=== PATIENT | male | born 1955 | race Caucasian/White ===

== ENCOUNTER → 2018-06-23 09:37 | Outpatient (CLI) | payer OTHER, SELFPAY ==
--- NOTE | 2018-06-23 09:35 | DI.REPORT_ITS ---
SYMPTOM/DIAGNOSIS: ACUTE PAIN RIGHT SHOULDER M25.511. RIGHT SHOULDER: Five views. There are mild hypertrophic changes seen at the acromioclavicular joint. The glenohumeral joint is well maintained. The bones are intact and normally mineralized. The soft tissues are unremarkable. IMPRESSION: 1. No acute abnormality. 2. Mild degenerative changes of the right AC joint. 3. If there is concern for internal derangement an MRI should be considered for further evaluation.
== END ==
PROVIDERS: PCP Nurse Practitioner; Visit Provider Nurse Practitioner Adult Health
DX: M25.511 Pain in right shoulder (principal); M19.011 Primary osteoarthritis, right shoulder
CPT/HCPCS: 73030

== ENCOUNTER 2018-09-24 09:06 | Outpatient (CLI) | payer OTHER, SELFPAY ==
[2018-09-24 09:37] LABS: Abs Immature Grans 0.01 k/cumm (0.0-0.09); Absolute Basophil Count 0.01 k/cumm (0.0-0.2); Absolute Eosinophil Count 0.16 k/cumm (0.0-0.7); Absolute Lymphocyte Count 1.27 k/cumm (1.2-3.4); Absolute Monocyte Count 0.51 k/cumm (0.11-0.7); Absolute Neutrophil Count 3.97 k/cumm (1.2-6.7); Basophils % 0.2; Eosinophils % 2.7; HCT 45.7 % (40.0-50.0); HGB 15.4 g/dL (13.5-17.5); Immature Grans % 0.2; Lymphocytes % 21.4; Mean Corp. HGB Concentration 33.7 g/dL (32.0-36.0); Mean Corpuscular Hemoglobin 29.7 pg (27.0-33.0); Mean Corpuscular Volume 88.2 fL (80-95); Mean Platelet Volume 12.2 fL (8.0-11.0); Monocytes % 8.6; Neutrophils % 66.9; Platelet Count 158 x1000/uL (130-400); RBC 5.18 m/cumm (4.50-6.00); RBC Distribution Width 13.7 % (11.8-14.1); White Blood Cell Count 5.93 k/cumm (4.4-10.8)
[2018-09-24 10:34] LABS: ALT 10 U/L (12-78); AST 25 U/L (15-37); Albumin 4.4 g/dL (3.4-5.0); Alkaline Phosphatase 83 U/L (46-116); Anion Gap 6.5 mmol/L (3-11); BUN 19 mg/dL (7-18); Bilirubin, Total 1.4 mg/dL (0.2-1.0); CO2 29.5 mmol/L (21.0-32.0); CREATININE 1.02 mg/dL (0.70-1.30); Calcium 9.5 mg/dL (8.5-10.1); Chloride 102 mmol/L (98-107); Cholesterol 246 mg/dL (50-200); Glucose 96 mg/dL (70-100); HDL Cholesterol 53 mg/dL (40-60); LDL CHOLESTEROL 178 mg/dL (<100); Potassium 5.1 mmol/L (3.5-5.1); Sodium 138 mmol/L (136-145); Total Protein 7.3 g/dL (6.4-8.2); Triglyceride 121 mg/dL (30-150)
== END 2018-09-24 09:26 ==
PROVIDERS: PCP Nurse Practitioner; Visit Provider Nurse Practitioner
DX: E78.5 Hyperlipidemia, unspecified (principal); G20 Parkinson's disease
CPT/HCPCS: 36415; 80053; 80061; 83721; 85025

== ENCOUNTER 2018-09-25 10:03 | Outpatient (CLI) | payer OTHER, SELFPAY ==
[2018-09-25 11:33] LABS: Bilirubin, Direct 0.18 mg/dL (0.00-0.20); Bilirubin, Total 0.8 mg/dL (0.2-1.0)
[2018-09-26 10:50] LABS: Lyme Ab w Rflx to Lyme Confirm Negative
[2018-09-27 00:02] LABS: Anaplasma phagocytophilum Negative (Negative); B. miyamotoi PCR Negative (Negative); Babesia divergens/MO-1 Negative (Negative); Babesia duncani Negative (Negative); Babesia microti Negative (Negative); Ehrlichia chaffeensis Negative (Negative); Ehrlichia ewingii/canis Negative (Negative); Ehrlichia muris eauclairensis Negative (Negative)
== END 2018-09-25 10:23 ==
PROVIDERS: PCP Nurse Practitioner; Visit Provider Nurse Practitioner
DX: M25.50 Pain in unspecified joint (principal); R79.9 Abnormal finding of blood chemistry, unspecified
CPT/HCPCS: 36415; 82247; 82248; 86618; 87798

== ENCOUNTER 2019-04-01 00:22 | Outpatient (CLI) | payer OTHER, SELFPAY ==
--- NOTE | 2019-04-01 11:00 | DI.US_ITS ---
SYMPTOM/DIAGNOSIS: PREVIOUS ENLARGED CYSTS, FEELS SIMILAR PAIN AGAIN,N28.1 RENAL ULTRASOUND: The kidneys are unremarkable in size and shape except for the presence of multiple simple renal cysts on the right kidney, the largest measuring about 32 mm. in diameter. No nephrolithiasis or hydronephrosis. Urinary bladder is unremarkable in appearance with pre and post void urinary bladder volume measurements of 118 cc's and 3 cc's respectively. CONCLUSION: Multiple right renal cysts. The examination is otherwise unremarkable.
== END 2019-04-01 00:42 ==
PROVIDERS: PCP Nurse Practitioner; Visit Provider Family Medicine
DX: N28.1 Cyst of kidney, acquired (principal)
CPT/HCPCS: 76770

== ENCOUNTER 2020-01-27 03:30 | Outpatient (CLI) | payer OTHER, SELFPAY ==
[2020-01-27 10:22] LABS: Anion Gap 8.8 mmol/L (3-11); BUN 22 mg/dL (7-18); CO2 30.2 mmol/L (21.0-32.0); CREATININE 1.03 mg/dL (0.70-1.30); Calcium 8.9 mg/dL (8.5-10.1); Chloride 104 mmol/L (98-107); Glucose 93 mg/dL (74-106); Potassium 4.5 mmol/L (3.5-5.1); Sodium 143 mmol/L (136-145)
[2020-01-27 11:45] LABS: Calculated LDL 146 mg/dL (<100); Cholesterol 222 mg/dL (<200); HDL Cholesterol 56 mg/dL (40-60); Triglyceride 103 mg/dL (<150)
== END 2020-01-27 03:50 ==
PROVIDERS: PCP Nurse Practitioner; Visit Provider Family Medicine
DX: E78.5 Hyperlipidemia, unspecified (principal); N28.1 Cyst of kidney, acquired
CPT/HCPCS: 36415; 80048; 80061

== ENCOUNTER 2020-10-17 11:55 | Outpatient (CLI) | payer OTHER, SELFPAY ==
--- NOTE | 2020-10-17 10:43 | DI.RAD_ITS ---
EXAM: XR SHOULDER RT COMPLETE 2+V CLINICAL HISTORY: rt shoulder pain TECHNIQUE: COMPARISON: No exams were available for comparison FINDINGS: Three views were obtained. There is mild hypertrophic degenerative change at the acromioclavicular j oint. Mild marginal osteophyte formation of the glenoid noted. Cartilaginous joint space of glenohu meral joint appears fairly well maintained. No other significant bony or soft tissue abnormality see n. IMPRESSION: Minimal degenerative changes as described above. RADIATION DOSE DELIVERED: Total DLP Total DLP
== END 2020-10-17 12:15 ==
PROVIDERS: PCP Nurse Practitioner; Referring Provider Nurse Practitioner; Visit Provider Physician Assistant Surgical
DX: M19.011 Primary osteoarthritis, right shoulder (principal)
CPT/HCPCS: 73030

== ENCOUNTER 2020-11-03 00:27 | Outpatient (CLI) | payer OTHER, SELFPAY ==
--- NOTE | 2020-11-03 13:17 | DI.RAD_ITS ---
EXAM: RF JOINT INJECTION FLUORO GUID CLINICAL HISTORY: R SHOULDER INJ UNDER FLUORO,RT SHOULDER PAIN,M25.511 TECHNIQUE: COMPARISON: No exams were available for comparison FINDINGS: C-arm fluoroscopy was utilized by Dr. Mcwilliams during right shoulder joint injection. Hard copy show s intra-articular injection. Fluoro time undetermined. IMPRESSION: RADIATION DOSE DELIVERED: Total DLP
--- NOTE | 2020-11-03 13:43 | OPPNE_ITS ---
Date of service: 11/03/20 Time of Service: 13:21 Procedure Note Date of procedure: 11/03/20 Procedure: Right Shoulder Injection Surgeon/Proceduralist/Physician: Hossein Mcwilliams Procedure Diagnosis: Right Shoulder Pain, ?Posterior Labral Tear Procedure Indications: Juan David has had persistent pain of the RIGHT shoulder. Noninvasive measures have been tried. To serve as both diagnostic and therapeutic, an injection under fluoroscopy was recommended. I had discussed the risks of the procedure and the patient elected to proceed. Procedure Description: Juan David was greeted in the flouroscopy room. The correct side was identified and the consent was reviewed with the patient and signed. The patient was then placed in the supine position on the fluoroscopy table. The RIGHT shoulder was then prepped with Chloraprep. The anterior injection starting point was identiifed by bony landmarks and fluoroscopy. The skin and soft tissue in the tract of the injection was anesthetized with 1% Lidocaine. A spinal needle was then inserted deep into the shoulder joint at the level of the recess between the glenoid and superior humeral head. A small amount of Omnipaque solution was injected to confirm intraarticular placement. Once confirmed, the shoulder was injected with 5cc of 0.5% Bupivicaine and 80mg of Depo-Medrol. A bandaid was placed on the injection site. The patient tolerated the procedure well and noted improvement in pre- injection pain.
[2020-11-03] MEDS: Bupivacaine 0.5% Pres-Free 10 ML VIAL 6 ML IJ (13:46)
[2020-11-03] MEDS: Omnipaque 300 MG/ML 10 ML BTL IJ (13:47)
[2020-11-03] MEDS: methylPREDNISolone ACETATE 80 MG/ML VIAL IM (13:48)
== END 2020-11-03 00:47 ==
PROVIDERS: PCP Nurse Practitioner; Visit Provider Student in an Organized Health Care Education/Training Program
DX: M25.511 Pain in right shoulder (principal)
CPT/HCPCS: 20610; 77002; J1040

== ENCOUNTER 2021-03-13 01:32 | Outpatient (CLI) | payer OTHER, SELFPAY ==
--- NOTE | 2021-03-13 09:30 | DI.MRI_ITS ---
EXAM: MR UPPER JOINT RT WO CLINICAL HISTORY: Failed nonop,SLAP TEAR RT SHOULDER,RT RTC TENDONITIS,IMPINGEMENT SYNDROME TECHNIQUE: Multiplanar multisequence MRI of the shoulder was performed. COMPARISON: CR XR SHOULDER RT COMPLETE 2+V from 10/17/2020 FINDINGS: MARROW:There is no evidence of fracture, Hill-Sachs deformity, nor ominous osseous lesions. There is significant area of signal abnormality in the subarticular aspect of the lesser tuberosity measuring 1.4 x 1 point 0 by 1.8 cm consistent with degenerative subarticular cystic formation. There are no d egenerative subarticular cysts in the osseous glenoid. ROTATOR CUFF MECHANISM: AC JOINT/ACROMIUM: Are degenerative changes in the AC joint. The undersurface of the lateral clavicl e proximal to the joint is causing some impingement related to convex undersurface of the clavicle at this level the undersurface of the acromion is flat. No impingement 12. No enthesopathy evident at the coracoacromial ligament.. There is no evidence of os acromiale. Supraspinatus: There is signal abnormality in the supraspinatus tendon with insertional partial thick ness tearing on the articular side. No full-thickness tear evident. No retraction of the musculoten dinous junction. Infraspinatus: Intact. No evidence of tear nor muscle atrophy. Teres Minor: Intact. No evidence of tear nor muscle atrophy. Subscapularis/anterior cuff: Intact. No abnormal signal at the level of the multipennate insertional fibers. No significant tear nor atrophy. BICEPS TENDON/LABRUM: Exhibits normal position within the intertubercular groove. The exhibits some abnormal signal at its attachment with the anterosuperior labrum and some signal ab normality consistent with SLAP-type tearing is seen in the superior labrum more posteriorly. This te aring also involves the more superior aspect of the posterior labrum. Inferior labrum appears intact . Some increased signal is evident within the anterior labrum. There is no evidence of paralabral cyst. GLENOHUMERAL JOINT: No prominent joint effusion nor obvious loose intra-articular bodies. Mild degen erative changes evident within the hyaline cartilage.. No osteophytes. No evidence of capsular tear . The inferior glenohumeral ligament is intact. QUADRILATERAL SPACE: No evidence of mass in the region of the axillary nerve and dorsal circumflex hu meral vessels. Visualized triceps muscle at this level appears unremarkable. IMPRESSION: 1. Partial-thickness tearing of the insertional aspect of the supraspinatus. No full-thickness tear. No retraction of the musculotendinous junction. No prominent muscle atrophy. There is impingement related to degenerative changes in the AC joint and convex undersurface of the lateral 3rd of the cl avicle. 2. Although the biceps tendon not displaced from the intertubercular groove, there is signal abnormal ity at its attachment to the anterosuperior labrum as well as increased signal within the superior la ken posterior to this level and also within the superior aspect of the posterior labrum. Consistent with an element of SLAP-type tear. Mild tearing of the anterior labrum also noted. There is no leonor dence of paralabral cyst. DATA REPOSITORY:
== END 2021-03-13 01:52 ==
PROVIDERS: PCP Nurse Practitioner; Visit Provider Student in an Organized Health Care Education/Training Program
DX: M25.511 Pain in right shoulder (principal); M75.41 Impingement syndrome of right shoulder; M75.81 Other shoulder lesions, right shoulder; S43.431A Superior glenoid labrum lesion of right shoulder, initial encounter; M75.111 Incomplete rotator cuff tear or rupture of right shoulder, not specified as traumatic
CPT/HCPCS: 73221

== ENCOUNTER 2021-03-18 09:13 | Emergency (ER) | payer OTHER, SELFPAY ==
[2021-03-18] MEDS: Normal Saline Flush 10 ML SYR IVP (09:20)
[2021-03-18] MEDS: Normal Saline 1,000 ML 1000 ML IV (09:20)
[2021-03-18] MEDS: Ketorolac 30 MG/ML VIAL IVP (09:25)
--- NOTE | 2021-03-18 09:29 | ED.GENADUL_ITS ---
Discharge Plan Disposition Patient Disposition: HOME Condition: Stable Discharge Details Clinical Impression: Kidney stone, Hematuria Primary Care Provider: Shirley Herrmann ED Provider: Janeth Barnett Home Meds and New Rx's Prescriptions: Continued sildenafil [Viagra] 100 mg tablet 100 mg PO ONCE PRN (Reason: sexual activity) Qty: 10 RF: 12 carbidopa-levodopa [Sinemet] 25-100 mg tablet 1 tab PO TID RF: 0 amantadine HCl 100 mg tablet 100 mg PO BID Qty: 180 RF: 3 Multi-Betic 1 EACH tablet 1 ea PO DAILY RF: 0 STRESSTABS PO DAILY RF: 0 ibuprofen 800 mg tablet 800 mg PO TID PRN (Reason: pain) Qty: 90 RF: 1 Discharge Instructions Instructions: Oxycodone, Rapid Release (By mouth), Kidney Stones (ED), Hematuria (ED) Additional Instructions: You have a kidney stone on the right side. Please encourage water intake. Tylenol and/or Ibuprofen for discomfort. If this is insufficient, you may use the oxycodone as prescribed. One tab every six hours as needed for discomfort. Do not drive while taking this medication. Flomax once daily to promote passage of stone, this was called to your pharmacy. You may stop once stone has passed. Please strain your urine to collect stone. Please call Dr. Pina Saturday to schedule follow up appointment. If you develop fevers/chills, increased pain or other new/worsening symptoms please seek care urgently once again. Referrals: Rigo Pina MD [ [facility] STAFF PHYSICIAN] - Shirley Herrmann NP [Primary Care Provider] - Medical Decision Making Patient is a pleasant 55-year-old gentleman presented with chief complaint of right sided flank pain that radiates into the right lower quadrant as well as hematuria. He describes a sudden onset of pain approximately 45 minutes prior to arrival. He has no history of nephrolithiasis although he does report that his brother has had issues with kidney stones historically. States that pain radiates from the right flank into the right lower quadrant. States he did initially have some nausea but denies any now. No fevers. No vomiting. States that he noted hematuria shortly after the onset of his symptoms but denies any dysuria. On exam, patient appears uncomfortable. Nontoxic. Afebrile. Hypertensive blood pressure 152/87. Indicates the right flank draws a line to the right lower quadrant is area of discomfort. Denies any testicular pain. Abdomen has no peritoneal findings with some mild discomfort in the right lower quadrant. No CVA tenderness to percussion at this time. Lungs are clear. Normal cardiac exam. Primarily concern at this time for nephrolithiasis. Patient does report that he has had kidney cyst historically as well. Also considered appendicitis but find this less likely. Plan to obtain CT for renal studies. Patient will be given Toradol and morphine to help with discomfort. Reevaluated the patient. He reports feeling improved and declines any further analgesics. Discussed findings of labs with the patient. CT and UA pendin. Reviewed by radiologist: FINDINGS: Liver: Normal. No mass. Gallbladder and bile ducts: Normal. No calcified stones. No ductal dilation. Pancreas: Normal. No ductal dilation. Spleen: Normal. No splenomegaly. Adrenal glands: Normal. No mass. Kidneys and ureters: 2.4 millimeter RIGHT UVJ calculus causes moderate dilatation of the RIGHT ureter, and RIGHT collecting system. The RIGHT kidney is edematous and there is RIGHT perirenal stranding. Multiple cystic structures in both kidneys. Pararenal cysts in the left kidney. Nonobstructing left renal calculus Stomach and bowel: The stomach is not distended. Gastric pathology cannot be ruled out Appendix: Normal appendix Intraperitoneal space: Unremarkable. No free air. No significant fluid collection. Vasculature: Unremarkable. No abdominal aortic aneurysm. Lymph nodes: Small retroperitoneal nodes Urinary bladder: Unremarkable as visualized. Reproductive: Unremarkable as visualized. Bones/joints: Unremarkable. No acute fracture. Soft tissues: Unremarkable. IMPRESSION: 2.4 millimeter RIGHT UVJ calculus causes moderate dilatation of the RIGHT ureter, and RIGHT collecting system. The RIGHT kidney is edematous and there is RIGHT perirenal stranding. Labs reviewed. No leukocytosis. Stable H&H. No significant abnormalities on CMP. Urine was brown and significant for RBCs. This has reflex to culture. Do not see any clinical indicators to suggest infected stone at this time. Normal WBC. Patient did receive 1 L of fluids while here. Will give Flomax. He will continue the Flomax capacity stone. Advise follow-up with urology. He will strain his urine and bring stone in for sampling. Return precautions were discussed. We will continue with Tylenol and/or ibuprofen as needed for discomfort. Augmented with oxycodone. #4 tabs were given to the patient and safe use was discussed. He was advised not to drive will take this medication. He will take this only as prescribed. Return precautions were discussed. Advised to follow-up with urology. They will call on Saturday to schedule follow- up appointment. Urine culture is pending. All of his questions and concerns were addressed and he is in agreement with this plan. HPI General Mode of arrival: ambulatory . Date/Time Provider Initiated Documentation: 03/18/21 09:16 . Limitations to Documentation: no limitations . Information obtained by: patient, family () and RN notes reviewed . History of Present Illness 65 year old M presents to the emergency department with the chief complaint of right flank/abdoominal pain, described as severe, with intensity rated at 10. Quality is described as stabbing, and is localized to the back and abdomen. Patient reports no radiation. Patient started experiencing this minute(s) (45) and it has been constant. No relieving factors improve symptom(s), No exacerbating factors reported . Patient notes nausea/vomiting (states he initially had nausea, no vomiting, none currently); denies chest pain, fever/chills, rash, shortness of breath and weakness. Patient did receive the following treatments prior to arrival, none Related Data Home Medications Medication Instructions Recorded Confirmed Multi-Betic 1 ea PO DAILY 08/28/16 03/18/21 Stresstabs PO DAILY 08/28/16 02/22/21 sildenafil 100 mg tablet 100 mg PO ONCE PRN #10 tab 01/27/20 03/18/21 amantadine HCl 100 mg tablet 100 mg PO BID #180 tab 08/24/20 03/18/21 ibuprofen 800 mg tablet 800 mg PO TID PRN #90 tab 10/06/20 03/18/21 carbidopa 25 mg-levodopa 100 mg 1 tab PO TID tab-cap 02/22/21 03/18/21 tablet Previous Rx's Medication Instructions Recorded sildenafil 100 mg tablet 100 mg PO ONCE PRN #10 tab 01/27/20 amantadine HCl 100 mg tablet 100 mg PO BID #180 tab 08/24/20 ibuprofen 800 mg tablet 800 mg PO TID PRN #90 tab 10/06/20 Allergies Allergy/AdvReac Type Severity Reaction Status Date / Time gentamicin Allergy Intermediate eye Verified 03/18/21 09:36 irritation poison ariana extract AdvReac Intermediate Skin Rash Verified 03/18/21 09:36 [Poison Ariana Extract] tobramycin AdvReac Intermediate Eye Verified 03/18/21 09:36 irritation aspirin AdvReac Unknown BLOODY NOSE Verified 03/18/21 09:36 poison oak extract AdvReac Unknown Skin Rash Verified 03/18/21 09:36 [Poison [place] Extract] Review of Systems Constitutional Constitutional: Reports as per HPI, Denies chills, Denies fatigue, Denies fever(s) and Denies headache(s) ENT Ears, Nose, Mouth, and Throat: Denies headache(s) Cardiovascular Cardiovascular: Reports as per HPI, Denies chest pain and Denies dyspnea Respiratory Respiratory: Reports as per HPI, Denies cough and Denies dyspnea Gastrointestinal Gastrointestinal: Reports as per HPI Genitourinary Genitourinary: Reports as per HPI Musculoskeletal Musculoskeletal: Reports as per HPI Neurologic Neurologic: Denies headache(s) Endocrine Endocrine: Denies fatigue [facility] Medical History (Updated 03/18/21 @ 11:09 by JUSTIN August) Erectile dysfunction Low back pain (04/29/14) Dr Woodson Other and unspecified hyperlipidemia (11/27/11) LDL goal 160 Logan RS 8%; PCEq 7.8%; LDL baseline 148 Parkinson disease (09/19/16) Right rotator cuff tendonitis Rotator cuff impingement syndrome of left shoulder (02/29/16) Simple renal cyst (03/01/14) Surgical History Arthroscopy, Shoulder (02/14/16) left 2016 Colonoscopy - IV Sedation (10/19/14) Dr Hernandez History of ankle surgery 1998 for bone spur Status post biopsy of kidney IR procedure in 2013 for renal cyst Family History Sister Hypertension Brother No problems noted. Mother , age 60 of breast CA Hypertension Breast cancer Father , age 83 of CHF CHF (congestive heart failure) Sister Lung cancer Social History Smoking/Tobacco Use Status: Never Smoking risk assessment performed?: Yes Alcohol Intake: current Alcohol Intake frequency: a few times a week Alcohol type: beer Drug use: Occasionally Substance use type: marijuana Adopted: No Foster care: No Household members: spouse Number of Children: 2 number of grandchildren: 0 current occupation: pharmacist Sexually active: Yes Do you think of yourself as: straight/heterosexual Current gender identity: male Frequency: 3-4 times per week Special manuel needs: No Seatbelt use: always Helmet use: Yes Drive intox or ride w/intox otr driver: No Working smoke detector in home: Yes Fire extinguisher in home: Yes Carbon monox detector in home: No Exam Const General: cooperative, healthy appearing, uncomfortable, no acute distress and well developed Nutritional Appearance: average body habitus and well nourished Orientation: alert and awake HENMT Mouth: moist mucous membranes Resp Effort & Inspection: normal respiratory effort and no respiratory distress Auscultation: clear to auscultation bilaterally, no rales, no rhonchi and no wheezes Cardio Rate: regular rate Rhythm: regular rhythm Heart Sounds: S1 normal and S2 normal GI Inspection: normal to inspection, no edema and non-distended Palpation: soft, no hepatosplenomegaly, no guarding, no hernias, no pulsatile masses and tender (mild tenderness RLQ, no rebound or peritoneal findings) Percussion: normal to percussion Auscultation: normal bowel sounds Back/Spine/Pelvis Back: no CVA tenderness Skin General skin exam: no rashes or lesions noted Neuro General: patient alert and patient awake Cognition: normal cognition Speech: speech normal Gait: normal gait Psych Appearance: grossly normal and well kempt Mental Status: mental status grossly normal Speech and Movement: speech and movement normal
[2021-03-18 09:33] VITALS: BP 162/87; PULSE 59; RESP 16; TEMP 36.2; O2SAT 100
[2021-03-18 09:36] LABS: Abs Immature Grans 0.01 10^3/uL (0.0-0.06); Absolute Basophil Count 0.03 10^3/uL (0.0-0.2); Absolute Eosinophil Count 0.14 10^3/uL (0.0-0.7); Absolute Lymphocyte Count 1.75 10^3/uL (1.2-3.4); Absolute Monocyte Count 0.45 10^3/uL (0.1-0.8); Absolute Neutrophil Count 3.72 10^3/uL (1.2-6.7); Basophils % 0.5; Eosinophils % 2.3; HCT 46.6 % (40.0-50.0); HGB 15.4 g/dL (13.5-17.5); Immature Grans % 0.2; Lymphocytes % 28.7; MCH 29.2 pg (27.0-33.0); MCV 88.4 fL (80-95); MPV 12.5 fL (8.0-11.0); Monocytes % 7.4; Neutrophils % 60.9; Nucleated RBC 0 %; Platelet Count 148 10^3/uL (130-400); RBC 5.27 10^6/uL (4.36-5.78); RDW 12.5 % (11.8-14.1); RDW-SD 40.6 fL
[2021-03-18 09:45] LABS: ALT 13 U/L (16-63); AST 21 U/L (15-37); Albumin 4.1 g/dL (3.4-5.0); Alkaline Phosphatase 102 U/L (46-116); Anion Gap 10.4 mmol/L (3-11); BUN 25 mg/dL (7-18); Bilirubin, Total 0.9 mg/dL (0.2-1.0); CO2 27.6 mmol/L (21.0-32.0); CREATININE 1.2 mg/dL (0.70-1.30); Chloride 104 mmol/L (98-107); Glucose 127 mg/dL (74-106); Potassium 3.7 mmol/L (3.5-5.1); Sodium 142 mmol/L (136-145); Total Protein 7.4 g/dL (6.4-8.2)
[2021-03-18] MEDS: MORPHine 10 MG/ML VIAL 4 MG IVP (09:49)
--- NOTE | 2021-03-18 10:22 | DI.CT_ITS ---
Exam(s) CT RENAL COLIC WO EXAM: CT RENAL COLIC WO CLINICAL HISTORY: right flank pain. TECHNIQUE: Imaging Protocol: Axial computed tomography images with coronal and sagittal reformatted images were created and reviewed. COMPARISON: CT UPPER ABD WITH CONTRAST (P) from 06/03/2014 FINDINGS: ABDOMEN: Lung Bases: Normal where visualized. Liver: Normal density. No measurable mass. Gallbladder and biliary tract: No radiodense calculus or biliary ductal dilation. Pancreas: Normal density, no abnormal calcifications or inflammatory process. Spleen: Normal. Kidneys: Normal size, contour and axis.There are nonobstructing stones in the left kidney. There is a 2 mm stone in the distal right ureter proximal to the UVJ. There is also a 2 mm stone on the right side urinary bladder which appears to be causing mild right hydronephrosis. There are bilateral benitez al cysts. Adrenal glands: No mass is seen. Lymph nodes: Within normal limits. Abdominal Aorta: Abdominal portion non-dilated. Atherosclerosis. PELVIS: Bladder:Symmetric distention, no gross wall thickening. Bowel: No obstruction or bowel wall thickening. No appendicitis. Peritoneal cavity: No ascites, collection or mesenteric inflammatory response. No free air. Reproductive organs: The prostate gland is mildly enlarged. Bones: Within normal limits. Soft Tissues: Within normal limits. IMPRESSION: 1. 2 mm stone in the right side of the urinary bladder. This may represent a recently passed stone o r stone at the orifice of the distal right ureter. There is mild right hydronephrosis. 2. Left nephrolithiasis. 3. Bilateral renal cysts. RADIATION DOSE DELIVERED: 708.91mGy.cm Total DLP DATA REPOSITORY: All CT scans at this facility are submitted to the National Radiology Data Registry (NRDR) Dose Index Registry (DIR) with the [employer] (ACR). RADIATION OPTIMIZATION: All CT scans at this facility use at least one of these dose optimization te chniques: automated exposure control; mA and/or kV adjustment per patient size (includes targeted exa ms where dose is matched to clinical indication); or iterative reconstruction.
[2021-03-18 10:34] LABS: Bilirubin Color Interference (Negative); Blood Color Interference (Negative); Clarity Cloudy (Clear); Glucose Color Interference mg/dL (Negative); Ketones Color Interference mg/dL (Negative); Leukocyte Esterase Color Interference (Negative); Nitrite Color Interference (Negative); Urobilinogen Color Interference EU/dL (Up TO 0.2)
--- NOTE | 2021-03-18 10:40 | DI.VRAD_ITS ---
PROCEDURE INFORMATION: Exam: CT Abdomen And Pelvis Without Contrast Exam date and time: 03/18/2021 10:16 AM Age: 65 years old Clinical indication: Other: Right flank pain TECHNIQUE: Imaging protocol: Computed tomography of the abdomen and pelvis without contrast. Radiation optimization: All CT scans at this facility use at least one of these dose optimization techniques: automated exposure control; mA and/or kV adjustment per patient size (includes targeted exams where dose is matched to clinical indication); or iterative reconstruction. COMPARISON: CT UPPER ABD WITH CONTRAST (P) 06/03/2014 10:04 AM FINDINGS: Liver: Normal. No mass. Gallbladder and bile ducts: Normal. No calcified stones. No ductal dilation. Pancreas: Normal. No ductal dilation. Spleen: Normal. No splenomegaly. Adrenal glands: Normal. No mass. Kidneys and ureters: 2.4 millimeter RIGHT UVJ calculus causes moderate dilatation of the RIGHT ureter, and RIGHT collecting system. The RIGHT kidney is edematous and there is RIGHT perirenal stranding. Multiple cystic structures in both kidneys. Pararenal cysts in the left kidney. Nonobstructing left renal calculus Stomach and bowel: The stomach is not distended. Gastric pathology cannot be ruled out Appendix: Normal appendix Intraperitoneal space: Unremarkable. No free air. No significant fluid collection. Vasculature: Unremarkable. No abdominal aortic aneurysm. Lymph nodes: Small retroperitoneal nodes Urinary bladder: Unremarkable as visualized. Reproductive: Unremarkable as visualized. Bones/joints: Unremarkable. No acute fracture. Soft tissues: Unremarkable. IMPRESSION: 2.4 millimeter RIGHT UVJ calculus causes moderate dilatation of the RIGHT ureter, and RIGHT collecting system. The RIGHT kidney is edematous and there is RIGHT perirenal stranding. Dictated and Authenticated by: Christin Pryor MD. Ordering:SOLOMON Fowler MD
--- NOTE | 2021-03-18 10:43 | NUR.NOTE ---
Nursing Note: Referral faxed to [facility] Urology for follow up of kidney stone. Aimee Ibrahim
[2021-03-18 10:44] LABS: C & S Indicated? Yes; RBC >50 HPF (0-2)
[2021-03-18] MEDS: Tamsulosin 0.4 MG CAPCR PO (11:05)
[2021-03-18 11:10] VITALS: BP 150/85; PULSE 59; RESP 16; TEMP 36.2; O2SAT 98
== END 2021-03-18 11:17 | disposition home or self-care (01) ==
PROVIDERS: Emergency Provider Physician Assistant; PCP Nurse Practitioner
DX: N20.0 Calculus of kidney (principal); R31.9 Hematuria, unspecified
CPT/HCPCS: 80053; 96361; 96374; 96375; 99284; 74176; 81003; 81015; 85025; 87086; 99283; J1885; J2270

== ENCOUNTER 2021-03-20 18:07 | Outpatient (REF) | payer OTHER, SELFPAY ==
[2021-03-24 13:19] LABS: Interpretation 100% Uric acid; Source: Passed Stone
== END 2021-03-20 18:08 | disposition home or self-care (01) ==
LOC: LBN 18:07
PROVIDERS: PCP Nurse Practitioner; Visit Provider Urology
DX: N20.0 Calculus of kidney (principal)
CPT/HCPCS: 82365

== ENCOUNTER → 2023-04-10 10:43 | Outpatient (BNVA) | payer MEDICARE, SELFPAY | PROVIDERS: PCP Nurse Practitioner; Visit Provider Psychiatry & Neurology Neurology | DX: R35.1 Nocturia (principal); G20 Parkinson's disease | CPT/HCPCS: 99214 ==

== ENCOUNTER 2023-07-03 09:53 | Outpatient (CLI) | payer MEDICARE, SELFPAY ==
[2023-07-03 09:29] LABS: Absolute Basophil Count 0.01 10^3/uL (0.0-0.2); Absolute Lymphocyte Count 1.07 10^3/uL (1.2-3.4); Absolute Monocyte Count 0.31 10^3/uL (0.1-0.8); Absolute Neutrophil Count 3.41 10^3/uL (1.2-6.7); Basophils % 0.2; HCT 44.3 % (40.0-50.0); HGB 14.7 g/dL (13.5-17.5); Lymphocytes % 21.8; MCH 29.2 pg (27.0-33.0); MCHC 33.2 % (32.0-36.0); MCV 88 fL (80-95); Monocytes % 6.3; Neutrophils % 69.7; Platelet Count 140 10^3/uL (130-400); RBC 5.04 10^6/uL (4.36-5.78); RDW 13.5 % (11.8-14.1); RDW-SD 43.4 fL
[2023-07-03 09:45] LABS: ALT 6 U/L (16-63); AST 19 U/L (15-37); Albumin 4.1 g/dL (3.4-5.0); Alkaline Phosphatase 106 U/L (46-116); BUN 26 mg/dL (7-18); Bilirubin, Total 1.3 mg/dL (0.2-1.0); CREATININE 0.9 mg/dL (0.70-1.30); Calcium 9.1 mg/dL (8.5-10.1); Calculated LDL 134 mg/dL (<100); Chloride 107 mmol/L (98-107); Cholesterol 210 mg/dL (<200); Estimated GFR 93.03 (mL/min/1.73m2); Glucose 102 mg/dL (74-106); HDL Cholesterol 67 mg/dL (40-60); Potassium 4.5 mmol/L (3.5-5.1); Sodium 145 mmol/L (136-145); Total Protein 7.4 g/dL (6.4-8.2); Triglyceride 45 mg/dL (<150)
== END 2023-07-03 09:54 | disposition home or self-care (01) ==
LOC: LBO 09:55
PROVIDERS: PCP Nurse Practitioner; Visit Provider Nurse Practitioner
DX: G20 Parkinson's disease (principal); E78.5 Hyperlipidemia, unspecified
CPT/HCPCS: 36415; 80053; 80061; 85025

== ENCOUNTER → 2023-10-16 10:07 | Outpatient (BNVA) | payer MEDICARE, SELFPAY | PROVIDERS: PCP Nurse Practitioner; Visit Provider Psychiatry & Neurology Neurology | DX: G20.A1 Parkinson's disease without dyskinesia, without mention of fluctuations (principal); R35.1 Nocturia; K59.00 Constipation, unspecified | CPT/HCPCS: 99213 ==

== ENCOUNTER → 2024-04-15 09:33 | Outpatient (BNVA) | payer MEDICARE, SELFPAY | PROVIDERS: PCP Nurse Practitioner; Referring Provider Nurse Practitioner; Visit Provider Psychiatry & Neurology Neurology | DX: G20.C Parkinsonism, unspecified (principal); K59.00 Constipation, unspecified | CPT/HCPCS: 99215 ==

== ENCOUNTER 2024-08-11 09:38 | Outpatient (CLI) | payer MEDICARE, SELFPAY ==
[2024-08-11 10:24] LABS: ALT 9 U/L (16-63); AST 20 U/L (15-37); Albumin 4.1 g/dL (3.4-5.0); Alkaline Phosphatase 105 U/L (46-116); Anion Gap 6.7 mmol/L (3-11); BUN 24 mg/dL (7-18); Bilirubin, Total 1.25 mg/dL (0.2-1.0); CO2 30.3 mmol/L (21.0-32.0); Calcium 9.5 mg/dL (8.5-10.1); Calculated LDL 158 mg/dL (<100); Chloride 104 mmol/L (98-107); Cholesterol 239 mg/dL (<200); Estimated GFR 81.47 (mL/min/1.73m2); Glucose 101 mg/dL (74-106); HDL Cholesterol 67 mg/dL (40-60); Potassium 4.6 mmol/L (3.5-5.1); Sodium 141 mmol/L (136-145); Total Protein 7.5 g/dL (6.4-8.2); Triglyceride 71 mg/dL (<150)
== END 2024-08-11 09:39 | disposition home or self-care (01) ==
LOC: LBO 09:39
PROVIDERS: PCP Nurse Practitioner; Visit Provider Nurse Practitioner
DX: R25.1 Tremor, unspecified (principal); Z13.220 Encounter for screening for lipoid disorders
CPT/HCPCS: 36415; 80053; 80061

== ENCOUNTER → 2024-10-13 09:06 | Outpatient (BNVA) | payer MEDICARE, SELFPAY | PROVIDERS: PCP Nurse Practitioner; Visit Provider Psychiatry & Neurology Neurology | DX: G20.C Parkinsonism, unspecified (principal); K59.00 Constipation, unspecified | CPT/HCPCS: 99214 ==

== ENCOUNTER 2024-12-17 02:27 | Outpatient (CLI) | payer MEDICARE, SELFPAY ==
--- NOTE | 2024-12-17 07:00 | DI.US_ITS ---
Exam(s) US ABDOMEN RENAL EXAM: US ABDOMEN RENAL CLINICAL HISTORY: previous large renal cyst drained ,lt lat abd pain,compare with prev us, TECHNIQUE: Ultrasound abdomen performed using standard protocol. COMPARISON: US US renal from 04/01/[address] RENAL COLIC WO from 03/18/2021 FINDINGS: ABDOMINAL AORTA AND IVC: Visualized portions normal caliber. PANCREAS: Normal where visualized. LIVER: Normal. Hepatopetal flow in the Portal Vein. The liver measures 16.0cm long.No hepatic mass is seen sonographically. GALLBLADDER: No evidence of cholelithiasis. No evidence of wall thickening. No pericholecystic fluid identified. BILIARY SYSTEM: Common bile duct measures < 7 mm. No intrahepatic biliary ductal dilation. ADRIAN'S SIGN: Negative. SPLEEN: Not enlarged. ASCITES: None seen. Renal size in cm: Right: 11.0. Left: 1.8. Echogenicity: Normal. Hydronephrosis: No. Cyst or mass: There are multiple simple right renal cysts. Largest on the right measures 4.8 x 3.9 x 4.4 cm. The next largest is more superior in the right kidney and measures 3.3 x 3.1 x 2.9 cm. On the prior exam, the largest cyst on the right measured 3.2 cm. On the left kidney there smaller cysts . The largest measures 1.8 x 1.3 x 1.4 cm. Nephrolithiasis: No. Other findings: None. Bladder:The bladder was incompletely distended. There was some thickening of the wall of the urinary bladder. This may be due to underdistention. Ureteral jets: Right: Visualized and unremarkable. Left: Visualized and unremarkable. Prevoid vol:70 cc Postvoid vol:1 cc Prostate: 18 cc Renal color flow: Symmetric and within normal limits. IMPRESSION: Bilateral renal cysts. The largest on the right measures 4.8 x 3.9 x 4.4 cm. On the prior examination , the largest cyst on the right measures 3.2 cm. DATA REPOSITORY:
== END 2024-12-17 02:47 ==
LOC: DI 02:32
PROVIDERS: PCP Nurse Practitioner; Visit Provider Nurse Practitioner
DX: N28.1 Cyst of kidney, acquired (principal)
CPT/HCPCS: 76770; 76700

== ENCOUNTER → 2025-03-29 10:39 | Outpatient (BNVA) | payer MEDICARE, SELFPAY | PROVIDERS: PCP Nurse Practitioner; Referring Provider Nurse Practitioner; Visit Provider Psychiatry & Neurology Neurology | DX: G20.C Parkinsonism, unspecified (principal); K59.00 Constipation, unspecified | CPT/HCPCS: 99214 ==

== ENCOUNTER 2025-08-19 10:25 | Outpatient (CLI) | payer MEDICARE, SELFPAY ==
[2025-08-19 10:53] LABS: Abs Immature Grans 0.03 10^3/uL (0.0-0.06); HCT 44.9 % (40.0-50.0); HGB 14.7 g/dL (13.5-17.5); Immature Grans % 0.4 %; MCH 29.3 pg (27.0-33.0); MCHC 32.7 % (32.0-36.0); MCV 89 fL (80-95); MPV 12.0 fL (8.0-11.0); Platelet Count 136 10^3/uL (130-400); RBC 5.02 10^6/uL (4.36-5.78); RDW 13.1 % (11.8-14.1); RDW-SD 43.2 fL; WBC 6.90 10^3/uL (4.4-10.8)
[2025-08-19 11:17] LABS: Hemoglobin A1C 5.0 % (<5.7)
[2025-08-19 11:20] LABS: ALT 6 U/L (16-63); AST 24 U/L (15-37); Albumin 4.4 g/dL (3.4-5.0); Alkaline Phosphatase 106 U/L (46-116); Anion Gap 8.9 mmol/L (3-11); BUN 26 mg/dL (7-18); Bilirubin, Total 1.5 mg/dL (0.2-1.0); CO2 31.1 mmol/L (21.0-32.0); Calcium 9.2 mg/dL (8.5-10.1); Calculated LDL 159 mg/dL (<100); Chloride 103 mmol/L (98-107); Cholesterol 241 mg/dL (<200); Estimated GFR 72.22 (mL/min/1.73m2); Glucose 99 mg/dL (74-106); HDL Cholesterol 72 mg/dL (>or=40); Potassium 4.3 mmol/L (3.5-5.1); Sodium 143 mmol/L (136-145); TSH 1.14 uIU/mL (0.36-3.74); Total Protein 7.8 g/dL (6.4-8.2); Triglyceride 52 mg/dL (<150)
[2025-08-19 17:44] LABS: PSA, Screening 1.6 ng/mL (<=6.5)
== END 2025-08-19 10:26 | disposition home or self-care (01) ==
LOC: LBO 10:25
PROVIDERS: PCP Nurse Practitioner; Visit Provider Family Medicine
DX: N18.2 Chronic kidney disease, stage 2 (mild) (principal); E78.5 Hyperlipidemia, unspecified; Z13.1 Encounter for screening for diabetes mellitus; Z12.5 Encounter for screening for malignant neoplasm of prostate; Z13.9 Encounter for screening, unspecified; R53.83 Other fatigue
CPT/HCPCS: 36415; 80053; 80061; 84153; 83036; 84443; 85025

== ENCOUNTER → 2025-09-27 08:37 | Outpatient (BNVA) | payer MEDICARE, SELFPAY | PROVIDERS: PCP Nurse Practitioner; Referring Provider Nurse Practitioner; Visit Provider Psychiatry & Neurology Neurology | DX: G20.B1 Parkinson's disease with dyskinesia, without mention of fluctuations (principal); K59.00 Constipation, unspecified | CPT/HCPCS: 99214 ==